=== PATIENT | female | born 1990 | race Caucasian/White ===

== ENCOUNTER 2021-09-03 09:25 | Outpatient (CLI) | payer BC ==
[2021-09-03 10:02] LABS: Basophils % (Auto) 0.7 % (0.0-1.8); Eosinophils # (Auto) 0.2 K/mm3 (0.0-0.4); Eosinophils % (Auto) 2.6 % (0.0-4.3); Hemoglobin 12.8 gm/dl (10.1-14.3); Lymphocytes # (Auto) 2.3 K/mm3 (1.2-5.4); Lymphocytes % (Auto) 37.2 % (13.4-35.0); Mean Corpuscular HGB Conc 32 % (30-34); Mean Corpuscular Volume 85 fl (79-97); Monocytes # (Auto) 0.6 K/mm3 (0.0-0.8); Monocytes % (Auto) 10.5 % (0.0-7.3); Platelet Count 344 K/mm3 (140-440); Red Blood Count 4.71 M/mm3 (3.65-5.03); Red Cell Distribution Width 13.5 % (13.2-15.2)
[2021-09-03 10:31] LABS: Alanine Aminotransferase 16 units/L (7-56); Albumin 4.3 g/dL (3.9-5); Blood Urea Nitrogen 12 mg/dL (7-17); Calcium 9.1 mg/dL (8.4-10.2); Hemolysis Index 4; LDL Cholesterol,Direct 75 mg/dL (50-130)
[2021-09-03 10:34] LABS: BUN/Creatinine Ratio 17
--- NOTE | 2021-09-03 11:16 | XRay Report ---
LUMBAR SPINE 3 VIEWS INDICATION: LOW BACK PAIN COMPARISON: None. FINDINGS: There is no fracture, subluxation, or other acute radiographic abnormality of the lumbar spine. Signer Name: Ayaz Hanna MD Signed: 09/03/2021 11:11 AM Workstation Name: [id number]
[2021-09-03 19:20] LABS: Chol/HDL Ratio 2.01 %; HDL Cholesterol 68 mg/dL (40-59)
[2021-09-07 12:44] LABS: Vitamin D, 25-OH, D2 <4 ng/mL
== END 2021-09-03 09:26 | disposition home or self-care (01) ==
LOC: XRAY 09:25
PROVIDERS: ATTEND Internal Medicine
DX: Z13.29 Encounter for screening for other suspected endocrine disorder (principal); Z00.00 Encounter for general adult medical examination without abnormal findings; E78.5 Hyperlipidemia, unspecified; E55.9 Vitamin D deficiency, unspecified; R73.9 Hyperglycemia, unspecified; I10 Essential (primary) hypertension
CPT/HCPCS: 36415; 72100; 80053; 80061; 82306; 83036; 84443; 85025